=== PATIENT | male | born 1990 | race Caucasian/White ===

== ENCOUNTER 2017-10-09 03:31 | Emergency (ER) | payer SELFPAY ==
[2017-10-09 04:07] LABS: #Basophils 0.1 thou/uL (0.0-0.2); #Eosinphils 0.2 thou/uL (0.0-0.7); #Lymphocytes 2.7 thou/uL (1.20-3.40); #Monocytes 0.5 thou/uL (0.11-0.59); #Neutrophils 6.2 thou/uL (1.40-6.50); %Basophils 0.7 % (0.0-1.0); %Eosinophils 2.2 % (0.0-10.0); %Lymphocytes 27.8 % (21.0-51.0); %Monocytes 5.4 % (0.0-10.0); Hematocrit 46.7 % (42.0-52.0); Mean Platelet Volume 7.9 fL (7.4-10.4); Red Blood Cell (RBC) Count 5.22 mill/uL (4.70-6.10); White Blood Cell (WBC) Count 9.6 thou/uL (4.8-10.8)
[2017-10-09 04:27] LABS: ALT (SGPT) 34 U/L (8-55); AST (SGOT) 17 U/L (5-34); Alkaline Phosphatase 73 U/L (40-150); Anion Gap 12 mmol/L (10-20); BUN (Urea Nitrogen) 13 mg/dL (8.9-20.6); Bilirubin, Total 0.2 mg/dL (0.2-1.2); Calc. Creatinine Clearance 0 mL/min (70-130); Calcium 9.7 mg/dL (7.8-10.44); Carbon Dioxide 26 mmol/L (22-29); Chloride 102 mmol/L (98-107); Estimated GFR-MDRD Greater than 90; Globulin 3.6 g/dL (2.4-3.5); Protein, Total 7.7 g/dL (6.0-8.3)
[2017-10-09 04:37] LABS: Troponin I Less than 0.010 ng/mL (< 0.028)
[2017-10-09] MEDS ORDERED: cloNIDine 0.1 MG TAB ONE (05:09)
--- NOTE | 2017-10-09 07:10 | RAD ---
CHEST 2 VIEWS: Date: 10/09/17 HISTORY: Dyspnea. COMPARISON: 02/04/15. FINDINGS: Normal cardiaca silhouette. Pulmonary vessels and hilum are normal. No consolidation or mass. No pneu mothorax or osseous abnormalities. IMPRESSION: No acute cardiopulmonary process. POS: [facility]
== END 2017-10-09 05:16 | disposition home or self-care (01) ==
LOC: ERS 03:31
DX: I10 Essential (primary) hypertension (principal); R07.9 Chest pain, unspecified; F31.9 Bipolar disorder, unspecified; F17.210 Nicotine dependence, cigarettes, uncomplicated
CPT/HCPCS: 36415; 71020; 80053; 82553; 84484; 85025; 93005; 99406

== ENCOUNTER 2018-02-25 13:57 | Emergency (ER) | payer SELFPAY ==
--- NOTE | 2018-02-25 14:33 | RAD ---
PA AND LATERAL CHEST XRAY: DATE: 02/25/18. HISTORY: Cough. COMPARISON: 10/09/17. FINDINGS: Cardiac silhouette and pulmonary vasculature are within normal limits. The lungs remain clear. Ther e has been no interval change from the prior exam. IMPRESSION: No acute cardiopulmonary process. POS: [facility]
[2018-02-25] MEDS ORDERED: Dexamethasone 4 mg/ml Vial ONE (15:29)
== END 2018-02-25 15:56 | disposition home or self-care (01) ==
LOC: ERS 13:57
DX: J20.9 Acute bronchitis, unspecified (principal); G61.0 Guillain-Barre syndrome; F31.9 Bipolar disorder, unspecified; F17.210 Nicotine dependence, cigarettes, uncomplicated; I10 Essential (primary) hypertension; Z71.6 Tobacco abuse counseling
CPT/HCPCS: 71046; 96372; 99406; J1100

== ENCOUNTER 2018-05-03 07:07 | Emergency (ER) | payer OTHER, SELFPAY | END 2018-05-03 08:17 | disposition home or self-care (01) | LOC: ERS 07:07 | DX: I10 Essential (primary) hypertension (principal); F31.9 Bipolar disorder, unspecified; F17.210 Nicotine dependence, cigarettes, uncomplicated | CPT/HCPCS: 99283 ==

== ENCOUNTER 2018-05-23 05:57 | Emergency (ER) | payer OTHER | END 2018-05-23 07:29 | disposition home or self-care (01) | LOC: ERS 05:57 | DX: K03.2 Erosion of teeth (principal); K05.10 Chronic gingivitis, plaque induced; K02.9 Dental caries, unspecified; I10 Essential (primary) hypertension; F17.210 Nicotine dependence, cigarettes, uncomplicated; F31.9 Bipolar disorder, unspecified | CPT/HCPCS: 99282 ==

== ENCOUNTER 2021-04-04 00:03 | Emergency (ER) | payer OTHER, SELFPAY ==
[2021-04-04] MEDS ORDERED: Ondansetron PF 4 MG/2 ML Vial ONE (00:39)
[2021-04-04] MEDS ORDERED: Morphine 4 MG/ML VIAL ONE (00:39)
[2021-04-04 01:05] LABS: #Basophils 0.1 thou/uL (0.0-0.2); #Eosinphils 0.2 thou/uL (0.0-0.7); #Lymphocytes 3.2 thou/uL (1.20-3.40); #Monocytes 0.7 thou/uL (0.11-0.59); #Neutrophils 7.8 thou/uL (1.40-6.50); %Basophils 0.8 % (0.0-1.0); %Eosinophils 1.8 % (0.0-10.0); %Monocytes 5.9 % (0.0-10.0); %Neutrophils 64.6 % (42.0-75.0); ALT (SGPT) 23 U/L (8-55); AST (SGOT) 19 U/L (5-34); Alkaline Phosphatase 95 U/L (40-110); Anion Gap 21 mmol/L (10-20); BUN (Urea Nitrogen) 20 mg/dL (8.9-20.6); Bilirubin, Total 0.3 mg/dL (0.2-1.2); Calc. Creatinine Clearance 0 mL/min (70-130); Calcium 9.4 mg/dL (7.8-10.44); Carbon Dioxide 15 mmol/L (22-29); Chloride 97 mmol/L (98-107); Globulin 4.7 g/dL (2.4-3.5); Glucose 360 mg/dL (70-105); Hemoglobin 17.5 g/dL (14.0-18.0); Lipase 35 U/L (8-78); Mean Corpuscular HGB CONC 35.9 g/dL (32.0-36.0); Mean Corpuscular Hemoglobin 31.3 pg (27.0-31.0); Mean Corpuscular Volume 87.3 fL (78.0-98.0); Mean Platelet Volume 9.7 fL (7.4-10.4); Platelet Count 232 thou/uL (130-400); Potassium 4.1 mmol/L (3.5-5.1); Protein, Total 8.7 g/dL (6.0-8.3); RBC Distribution Width 12.2 % (11.5-14.5); Sodium 129 mmol/L (136-145)
[2021-04-04] MEDS ORDERED: Iopamidol-370 76% 500 ML 1 ML ONE (13:32)
== END 2021-04-04 03:46 | disposition left against medical advice (07) ==
LOC: ERS 00:03
DX: R10.11 Right upper quadrant pain (principal); R06.02 Shortness of breath; R07.2 Precordial pain; R51.9 Headache, unspecified; E11.9 Type 2 diabetes mellitus without complications; I10 Essential (primary) hypertension; F17.210 Nicotine dependence, cigarettes, uncomplicated; Z87.19 Personal history of other diseases of the digestive system
CPT/HCPCS: 36415; 71045; 71275; 80053; 83690; 84484; 85025; 85379; 93005; 96374; 96375; J2270; J2405; Q9967